=== PATIENT | female | born 1970 | race Caucasian/White ===

== ENCOUNTER 2020-04-12 17:13 | Outpatient (CLI) | payer OTHER, SELFPAY | END 2020-04-12 17:14 | disposition home or self-care (01) | LOC: ANHCOVIDVC 17:13 | PROVIDERS: PCP Family Medicine | DX: Z23 Encounter for immunization (principal) | CPT/HCPCS: 0001A; 91300 ==

== ENCOUNTER 2020-05-03 17:27 | Outpatient (CLI) | payer OTHER, SELFPAY | END 2020-05-03 17:28 | disposition home or self-care (01) | LOC: ANHCOVIDVC 17:27 | PROVIDERS: PCP Family Medicine | DX: Z23 Encounter for immunization (principal) | CPT/HCPCS: 0002A; 91300 ==

== ENCOUNTER 2020-11-22 15:54 | Outpatient (CLI) | payer OTHER, SELFPAY ==
[2020-11-22 16:41] LABS: Hemoglobin A1C 6.4 % (<5.7)
== END 2020-11-22 15:55 | disposition home or self-care (01) ==
LOC: ANHLAB 15:57
PROVIDERS: PCP Family Medicine; Visit Provider Nurse Practitioner Family
DX: R73.09 Other abnormal glucose (principal)
CPT/HCPCS: 36415; 83036

== ENCOUNTER 2021-07-06 00:40 | Day surgery (SDC) | payer OTHER, SELFPAY ==
[2021-06-22 13:06] VITALS: BMI 47.9
[2021-07-06 07:44] VITALS: BP 145/95; PULSE 84; RESP 16; TEMP 36.7; O2SAT 99
[2021-07-06] MEDS: LACTATED RINGERS 1,000 ML 150 ML IV CONT (08:08)
--- NOTE | 2021-07-06 08:41 | P.PNAN_ITS ---
Anes - Initial Pre Proc Eval Procedure: Operation Date: 07/06/21 09:00 Proposed Procedures p Screening Colonoscopy - Franklyn Perez MD Date/Time: 07/06/21 08:41 Surgeon: Franklyn Perez MD Pre Op Diagnosis: neoplasm screening Patient Data Age: 51 Gender: F Height: 1.6 m Weight: 125.7 kg Last Vital Signs Temp 98.0 F 07/06/21 07:44 Pulse 84 07/06/21 07:44 Resp 16 07/06/21 07:44 BP 145/95 H 07/06/21 07:44 Pulse Ox 99 07/06/21 07:44 O2 Del Method Room Air 07/06/21 07:44 Allergies Allergy/AdvReac Type Severity Reaction Status Date / Time No Known Allergies Allergy Verified 07/06/21 07:56 Home Medications Medication Instructions Recorded Confirmed Type escitalopram oxalate 10 mg tablet 5 mg PO DAILY #90 tabs 04/30/21 06/22/21 Rx (Lexapro) amlodipine 10 mg tablet See Rx Instructions .Route 05/22/21 06/22/21 Rx .COMPLEX #90 tabs triamterene 75 1 tablet PO DAILY #90 tabs 06/01/21 06/22/21 Rx mg-hydrochlorothiazide 50 mg tablet Patient hx anesthesia problems: none Family hx anesthesia problems: none Results Review: All pre-operative results and documents have been reviewed as part of the pre- operative evaluation. [facility] Past Medical History Medical History BMI 45.0-49.9, adult Tumor cells, benign Surgical History Surgical History H/O: hysterectomy Family History Family History Sibling Family history of diabetes mellitus in first degree relative Family history of heart disease in male family member before age 55 Grandparent Family history of malignant neoplasm of breast Mother Family history of diabetes mellitus in first degree relative Diabetes mellitus Father Traumatic brain injury Sibling Pancreatitis Diabetes mellitus Other Family history of allergic disorder Family history of malignant neoplasm Hypertension Social History Social History (Reviewed 04/30/21 @ 16:12 by STU Jaramillo Smoking status: Never smoker Second hand tobacco smoke exposure: Yes Alcohol intake: current Substance use: never Substance use type: does not use Living arrangements: with family Additional occupation/education comments: [employer] Gender identity (if verbalized by the patient): Female Spiritual care concerns: No Anes - Eval Final PreProcedure Day of Procedure 07/06/21 08:41 Patient weight: super morbidly obese Heart: regular rate and rhythm Lungs: clear to auscultation Airway: Mallampati scale class II Neurological: alert and oriented Last oral intake: >/= 8 hours ASA classification: III Emergent: no Anesthetic plan: proceed Anesthesia type and monitoring: general GIVS and standard monitoring Results Review: All pre-operative results and documents have been reviewed as part of the pre- operative evaluation. Informed Consent: The patient's anesthetic plan and its attendant risks and benefits were discus sed with the patient/family/POA. Questions were solicited and answers provided to the satisfaction of the patient/family/POA.
--- NOTE | 2021-07-06 08:41 | PM.HPGS ---
History of Present Illness History of Present Illness Consent: Risks, benefits, and alternatives have been discussed and questions answered. Patient agrees to proceed with procedure. Chief complaint: neoplasm screening Narrative: Charity Garcia is a 51 year old female here for first screening colonoscopy Review of Systems Constitutional: Constitutional: Denies headache(s) and Denies weakness Eyes: Eyes: Denies blurry vision ENT: Reports Normal hearing present, Denies headache(s) and Denies neck pain Cardiovascular: Cardiovascular: Denies chest pain and Denies dyspnea Respiratory: Respiratory: Denies dyspnea Gastrointestinal: Gastrointestinal: Reports no additional gastrointestinal complaints Genitourinary: Genitourinary: Denies dysuria Musculoskeletal: Musculoskeletal: Denies neck pain Integumentary/Breasts: Skin/Breast: Denies dry skin Neurologic: Reports Normal hearing present, Denies headache(s) and Denies weakness Psychiatric: Psychiatric: Denies anxiety Endocrine: Endocrine: Denies change in body appearance Hematologic/Lymphatic: Hematologic/Lymphatic: Denies easy bleeding Allergic/Immunologic: Allergic/Immunologic: Denies urticaria PMFSH Past Medical History Medical History BMI 45.0-49.9, adult Tumor cells, benign Surgical History Surgical History H/O: hysterectomy Family History Family History Sibling Family history of diabetes mellitus in first degree relative Family history of heart disease in male family member before age 55 Grandparent Family history of malignant neoplasm of breast Mother Family history of diabetes mellitus in first degree relative Diabetes mellitus Father Traumatic brain injury Sibling Pancreatitis Diabetes mellitus Other Family history of allergic disorder Family history of malignant neoplasm Hypertension Social History Social History Smoking status: Never smoker Second hand tobacco smoke exposure: Yes Alcohol intake: current Substance use: never Substance use type: does not use Living arrangements: with family Additional occupation/education comments: [employer] Gender identity (if verbalized by the patient): Female Spiritual care concerns: No Meds Home Medications and Allergies Home Medications Medication Instructions Recorded Confirmed Type escitalopram oxalate 10 mg tablet 5 mg PO DAILY #90 tabs 04/30/21 06/22/21 Rx (Lexapro) amlodipine 10 mg tablet See Rx Instructions .Route 05/22/21 06/22/21 Rx .COMPLEX #90 tabs triamterene 75 1 tablet PO DAILY #90 tabs 06/01/21 06/22/21 Rx mg-hydrochlorothiazide 50 mg tablet Allergies Allergy/AdvReac Type Severity Reaction Status Date / Time No Known Allergies Allergy Verified 07/06/21 07:56 Vital Signs Vital Signs - 24 hr 07/06/21 07:44 Temperature 98.0 F Pulse Rate 84 Respiratory Rate 16 Blood Pressure 145/95 H Pulse Oximetry 99 Oxygen Delivery Room Air Exam Const: General: comfortable and no acute distress HENMT: General nose exam: Normal nares present Eyes: General: appearance normal, both eyes and all related structures Neck: Neck: no JVD Resp: Auscultation: clear to auscultation bilaterally Cardio: Rate: regular rate Rhythm: regular rhythm GI: Inspection: non-distended GI Palp: Yes Soft to palpation Skin: General skin exam: normal color Neuro: General: gait normal Speech: normal speech Extrem: General: normal to inspection Psych: Mental Status: mental status grossly normal Assessment and Plan Assessment and plan (1) Screening for colon cancer: Code(s): Z12.11 - Encounter for screening for malignant neoplasm of colon Status: Acute Assessment and Plan: colonoscopy
[2021-07-06 08:57] VITALS: BP 129/82; PULSE 78; RESP 18; O2SAT 97
[2021-07-06 09:07] VITALS: BP 128/87; PULSE 82; RESP 20; O2SAT 98
[2021-07-06 09:17] VITALS: BP 132/81; PULSE 91; RESP 22; O2SAT 97
== END 2021-07-06 09:22 | disposition home or self-care (01) ==
PROVIDERS: PCP Family Medicine; Visit Provider Internal Medicine Gastroenterology
PROC: 0DJD8ZZ Inspection of Lower Intestinal Tract, Via Natural or Artificial Opening Endoscopic (ICD-10-PCS; CPT 45378; principal; 2021-07-06 09:00)
DX: Z12.11 Encounter for screening for malignant neoplasm of colon (principal); K57.30 Diverticulosis of large intestine without perforation or abscess without bleeding; K64.8 Other hemorrhoids
CPT/HCPCS: 45378; J2704; J7120

== ENCOUNTER 2023-05-20 15:49 | Outpatient (CLI) | payer BC, SELFPAY ==
--- NOTE | ~2023-05-20 | XR_ITS ---
XR lumbar spine min 4V 05/20/2023 16:48 Indication: Low back pain Procedure: 5 views lumbar spine Comparison: No prior studies for comparison. Findings: There is grade 1 degenerative spondylolisthesis at L4-5. Vertebral body heights are maintai henry. There is disc narrowing at L5-S1. No significant alteration of alignment with flexion and extens ion. Pedicles intact. Sacral foramen are symmetric. There is a laparoscopic adjustable gastric band. There is advanced degenerative disc disease and endplate hypertrophy at T11-12. Impression: 1: Moderate lumbar spondylosis. Reviewed, dictated and finalized at location A. Impression: 1: Moderate lumbar spondylosis.
== END 2023-05-20 15:50 ==
PROVIDERS: PCP Chiropractor Rehabilitation; Visit Provider Chiropractor Rehabilitation
DX: M47.896 Other spondylosis, lumbar region (principal)
CPT/HCPCS: 72110